=== PATIENT | female | born 1995 | race Caucasian/White ===

== ENCOUNTER 2018-10-19 19:43 | Emergency (ER) | payer BC, MEDICAID ==
[2018-10-19] MEDS ORDERED: FAMOTIDINE INJ/PF 20 MG/2 ML SDV IV ONE (20:35)
[2018-10-19] MEDS ORDERED: NORMAL SALINE 1000 ML 1,000 ML IV ONE (20:35)
[2018-10-19] MEDS ORDERED: ONDANSETRON HCL INJ/PF 4 MG/2 ML SDV IV ONE (20:35)
--- NOTE | 2018-10-19 20:52 | ER Document Report ---
ED Medical Screen (RME) - General Chief Complaint: Vomiting/Diarrhea Stated Complaint: VOMITING,DIARRHEA Time Seen by Provider: 10/19/18 20:20 Notes: She is a 23-year-old female who presents to the emergency department with a chief complaint of nausea, vomiting, and diarrhea. Patient states that over the past 4 days she has had vomiting every time she attempts to eat. Patient states she has had about 1-2 episodes of diarrhea per day. Patient denies blood in her emesis or stool. Patient also complaint of generalized upper abdominal pain and lower back pain. Patient does deny urinary symptoms. Patient states she has been able to tolerate liquids. TRAVEL OUTSIDE OF THE [place] IN LAST 30 DAYS: No - Related Data Allergies/Adverse Reactions: No Known Allergies Allergy (Verified 10/13/13 18:07) Past Medical History - Social History Frequency of alcohol use: Occasional Drug Abuse: None Pulmonary Medical History: Denies: Hx Tuberculosis Renal/ Medical History: Denies: Hx Peritoneal Dialysis Past Surgical History: Reports: Hx Oral Surgery - Immunizations Hx Diphtheria, Pertussis, Tetanus Vaccination: Yes - 02/14/13 Physical Exam - Vital signs Vitals: Temp Pulse Resp BP Pulse Ox 98.7 F 63 20 125/83 98 10/19/18 20:07 10/19/18 20:07 10/19/18 20:07 10/19/18 20:07 10/19/18 20:07 - Abdominal Inspection: Normal Distension: No distension Bowel sounds: Hyperactive Tenderness: Tender Organomegaly: No organomegaly Course - Re-evaluation Re-evalutation: 10/19/18 20:52 Presents to triage in no acute distress. Patient is nontoxic-appearing. I have greeted and performed a rapid initial assessment of this patient. A comprehensive ED assessment and evaluation of the patient, analysis of test results and completion of the medical decision making process will be conducted by additional ED providers. - Vital Signs Vital signs: Temp Pulse Resp BP Pulse Ox 98.7 F 63 20 125/83 98 10/19/18 20:07 10/19/18 20:07 10/19/18 20:07 10/19/18 20:07 10/19/18 20:07
[2018-10-19 22:16] LABS: ABSOLUTE EOSINOPHILS # (AUTO) 0.2 10^3/uL (0.0-0.6); ABSOLUTE LYMPHOCYTES (AUTO) 3.2 10^3/uL (0.5-4.7); ABSOLUTE MONOCYTES (AUTO) 0.7 10^3/uL (0.1-1.4); ABSOLUTE NEUT (AUTO) 3.8 10^3/uL (1.7-8.2); BASOPHILS % (AUTO) 0.5 % (0-2); EOSINOPHILS % (AUTO) 2.5 % (0-6); HEMATOCRIT 40.2 % (36.0-47.0); HEMOGLOBIN 13.7 g/dL (12.0-15.5); LYMPHOCYTES % (AUTO) 40.2 % (13-45); MEAN CORPUSCULAR HEMOGLOBIN 29.2 pg (27.0-33.4); MEAN CORPUSCULAR VOLUME 86 fl (80-97); PLATELET COUNT 241 10^3/uL (150-450); RED BLOOD COUNT 4.68 10^6/uL (3.72-5.28); RED CELL DISTRIBUTION WIDTH 13.3 % (11.5-14.0); SEGMENTED NEUTROPHILS % (AUTO) 47.8 % (42-78); TOTAL CELLS COUNTED % (AUTO) 100 %
[2018-10-19 22:26] LABS: APPEARANCE,URINE CLOUDY; BILIRUBIN,URINE NEGATIVE (NEGATIVE); COLOR,URINE YELLOW; GLUCOSE, URINE NEGATIVE (NEGATIVE); KETONES,URINE NEGATIVE (NEGATIVE); LEUKOCYTE ESTERASE,URINE MODERATE (NEGATIVE); NITRITE,URINE NEGATIVE (NEGATIVE); PROTEIN,URINE NEGATIVE (NEGATIVE); URINE SPECIFIC GRAVITY 1.013; UROBILINOGEN,URINE NEGATIVE mg/dL (<2.0)
[2018-10-19 22:32] LABS: ALANINE AMINOTRANSFERASE 44 U/L (9-52); ALBUMIN 4.4 g/dL (3.5-5.0); ALKALINE PHOSPHATASE 56 U/L (38-126); ANION GAP 11 (5-19); ASPARTATE AMINO TRANSFERASE 28 U/L (14-36); BILIRUBIN,DIRECT 0.3 mg/dL (0.0-0.4); BILIRUBIN,TOTAL 0.7 mg/dL (0.2-1.3); BLOOD UREA NITROGEN 9 mg/dL (7-20); CALCIUM 9.5 mg/dL (8.4-10.2); CARBON DIOXIDE 22 mmol/L (22-30); CHLORIDE 106 mmol/L (98-107); GLUCOSE 84 mg/dL (75-110); LIPASE 78.2 U/L (23-300); SODIUM 138.7 mmol/L (137-145); TOTAL PROTEIN 7.3 g/dL (6.3-8.2)
[2018-10-20] MEDS ORDERED: CEFTRIAXONE 1 GM/D5W RTU 1 GM/50 ML RTUPB IV ONE (02:15)
--- NOTE | 2018-10-20 02:37 | ER Document Report ---
ED GI/ - General Chief Complaint: Vomiting/Diarrhea Stated Complaint: VOMITING,DIARRHEA Time Seen by Provider: 10/19/18 20:20 Primary Care Provider: CALISTA VELA MD [Primary Care Provider] - Follow up as needed Information source: Patient TRAVEL OUTSIDE OF THE [place] IN LAST 30 DAYS: No - HPI Patient complains to provider of: Diarrhea, Vomiting Onset: Other - For the past 4 days. Timing/Duration: Sudden Quality of pain: Cramping Severity at maximum: Mild Severity in ED: Mild Pain Level: 1 Location: Epigastric Vaginal bleeding (Compared to normal period): None Associated symptoms: Nausea, Vomiting Exacerbated by: Denies Relieved by: Denies Similar symptoms previously: No Recently seen / treated by doctor: No - Related Data Allergies/Adverse Reactions: No Known Allergies Allergy (Verified 10/13/13 18:07) Past Medical History - Social History Smoking Status: Never Smoker Frequency of alcohol use: Occasional Drug Abuse: None Family History: None Patient has suicidal ideation: No Patient has homicidal ideation: No Pulmonary Medical History: Denies: Hx Tuberculosis Renal/ Medical History: Denies: Hx Peritoneal Dialysis Past Surgical History: Reports: Hx Oral Surgery - Immunizations Hx Diphtheria, Pertussis, Tetanus Vaccination: Yes - 02/14/13 Review of Systems - Review of Systems Constitutional: No symptoms reported EENT: No symptoms reported Cardiovascular: No symptoms reported Respiratory: No symptoms reported Gastrointestinal: Diarrhea, Nausea, Vomiting Genitourinary: No symptoms reported Female Genitourinary: No symptoms reported Musculoskeletal: No symptoms reported Skin: No symptoms reported Hematologic/Lymphatic: No symptoms reported Neurological/Psychological: No symptoms reported -: Yes All other systems reviewed and negative Physical Exam - Vital signs Vitals: Temp Pulse Resp BP Pulse Ox 98.7 F 63 20 125/83 98 10/19/18 20:07 10/19/18 20:07 10/19/18 20:07 10/19/18 20:07 10/19/18 20:07 Interpretation: Normal - General General appearance: Appears well, Alert - HEENT Head: Normocephalic, Atraumatic Eyes: Normal Pupils: PERRL - Respiratory Respiratory status: No respiratory distress Chest status: Nontender Breath sounds: Normal Chest palpation: Normal - Cardiovascular Rhythm: Regular Heart sounds: Normal auscultation Murmur: No - Abdominal Inspection: Normal Distension: No distension Bowel sounds: Normal Tenderness: Nontender Organomegaly: No organomegaly - Back Back: Normal, Nontender - Extremities General upper extremity: Normal inspection, Nontender, Normal color, Normal ROM, Normal temperature General lower extremity: Normal inspection, Nontender, Normal color, Normal ROM, Normal temperature, Normal weight bearing. No: Jerrell's sign - Neurological Neuro grossly intact: Yes Cognition: Normal Orientation: AAOx4 [place] Coma Scale Eye Opening: Spontaneous Cristian Coma Scale Verbal: Oriented Cristian Coma Scale Motor: Obeys Commands [place] Coma Scale Total: 15 Speech: Normal Motor strength normal: LUE, RUE, LLE, RLE Sensory: Normal - Psychological Associated symptoms: Normal affect, Normal mood - Skin Skin Temperature: Warm Skin Moisture: Dry Skin Color: Normal Course - Vital Signs Vital signs: Temp Pulse Resp BP Pulse Ox 98.4 F 66 20 102/64 97 10/20/18 02:47 10/20/18 02:47 10/20/18 02:47 10/20/18 02:47 10/20/18 02:47 - Laboratory Result Diagrams: 10/19/18 22:00 10/19/18 22:00 Laboratory results interpreted by me: 10/19/18 22:00 Urine Blood SMALL H Ur Leukocyte Esterase MODERATE H Discharge - Discharge Clinical Impression: UTI (urinary tract infection) Qualifiers: Urinary tract infection type: acute cystitis Hematuria presence: without hematuria Qualified Code(s): N30.00 - Acute cystitis without hematuria Condition: Stable Disposition: HOME, SELF-CARE Instructions: Urinary Tract Infection ([facility]), Vomiting ([facility]) Additional Instructions: Follow-up with your primary doctor in 2 to 3 days. Return to the emergency room if her condition worsens. Prescriptions: RX: Cephalexin Monohydrate [Keflex 500 mg Capsule] 500 mg PO Q6H 5 Days capsule Ondansetron [Zofran Odt 4 mg Tablet] 1 tab PO Q6H PRN #15 tab.rapdis PRN Reason: For Nausea/Vomiting Referrals: CALISTA VELA MD [Primary Care Provider] - Follow up as needed
[2018-10-20 02:50] VITALS: BP 102/64
== END 2018-10-20 02:50 | disposition home or self-care (01) ==
LOC: ER 19:43
DX: N30.00 Acute cystitis without hematuria (principal); R11.2 Nausea with vomiting, unspecified; R19.7 Diarrhea, unspecified; R10.13 Epigastric pain
CPT/HCPCS: 99284; 96361; 96374; 96375; 36415; 83690; 85025; 81025; 80053; 81001; J2405; J7030; S0028; J0696

== ENCOUNTER → 2019-11-13 | Outpatient (CLI) | payer BC ==
--- NOTE | 2019-11-13 12:18 | RADIOLOGY REPORT (SQ) ---
EXAM DESCRIPTION: VENOUS UNILATERAL LOWER IMAGES COMPLETED DATE/TIME: 11/13/2019 12:10 pm REASON FOR STUDY: LLE PAIN GRAVID 31 WKS M79.662 PAIN IN LEFT LOWER LEG COMPARISON: None. TECHNIQUE: Dynamic and static morrison scale and color images acquired of the left leg venous system. Se lected spectral images acquired with additional compression and augmentation maneuvers. The contralat eral common femoral vein and saphenofemoral junction were also imaged. Images stored on PACS. LIMITATIONS: None. FINDINGS: COMMON FEMORAL: Normal phasicity, compression and augmentation. No visualized echogenic ma terial on morrison scale. No defects on color images. FEMORAL: Normal compression and augmentation. No visualized echogenic material on morrison scale. No defe cts on color images. POPLITEAL: Normal compression, augmentation. No visualized echogenic material on morrison scale. No defec ts on color images. CALF VESSELS: Normal compression, augmentation. No visualized echogenic material on morrison scale. No de fects on color images. GSV and SSV: Normal compression, augmentation. No visualized echogenic material on morrison scale. No def ects on color images. ANY DEEP VENOUS INSUFFICIENCY: Not evaluated. ANY EVIDENCE OF POPLITEAL CYST: No. OTHER: No other significant finding. CONTRALATERAL COMMON FEMORAL VEIN AND SAPHENOFEMORAL JUNCTION: Normal phasicity, compression and augmentation. No visualized echogenic material on morrison scale. No de fects on color images. IMPRESSION: NO EVIDENCE DVT OR SVT IN THE LEFT LEG. TECHNICAL DOCUMENTATION: JOB ID: [id number] 2010 [employer]- All Rights Reserved Reading location - IP/workstation name: [email or web address]
== END ==
LOC: RAD 11:11
PROVIDERS: ATTEND Advanced Practice Midwife
DX: M79.662 Pain in left lower leg (principal)
CPT/HCPCS: 93971

== ENCOUNTER 2019-11-26 18:55 | Outpatient (CLI) | payer BC ==
[2019-11-26 19:35] LABS: APPEARANCE,URINE SLIGHTLY-CLOUDY; BILIRUBIN,URINE NEGATIVE (NEGATIVE); COLOR,URINE STRAW; GLUCOSE, URINE NEGATIVE (NEGATIVE); KETONES,URINE NEGATIVE (NEGATIVE); LEUKOCYTE ESTERASE,URINE MODERATE (NEGATIVE); NITRITE,URINE NEGATIVE (NEGATIVE); PROTEIN,URINE NEGATIVE (NEGATIVE); URINE SPECIFIC GRAVITY 1.002; UROBILINOGEN,URINE NEGATIVE mg/dL (<2.0)
[2019-11-26 19:48] LABS: URINE AMPHETAMINES SCREEN NEGATIVE; URINE BARBITURATES SCREEN NEGATIVE; URINE BENZODIAZEPINES SCREEN NEGATIVE; URINE COCAINE SCREEN NEGATIVE; URINE MARIJUANA (THC) SCREEN NEGATIVE; URINE METHADONE SCREEN NEGATIVE; URINE PHENCYCLIDINE SCREEN NEGATIVE
[2019-11-26] MEDS ORDERED: HYDROXYZINE PAMOATE 50 MG CAPSULE ONE (21:27)
--- NOTE | 2019-11-26 21:37 | Non Stress Test Report ---
Non Stress Test Datetime Report Generated by CPN: 11/26/2019 21:37 DEMOGRAPHIC EGA NST: 33.1 INDICATION Indication for Study (NST) Other: lc MONITORING Monitor Explained: Monitor Explained; Test Explained; Patient Verbalized Understanding Time on Monitor: 11/26/2019 19:23 Time off Monitor: 11/26/2019 21:25 NST Duration: 122 NST INTERVENTIONS NST Interventions: PO Hydration; Reposition Patient Physician Notified NST: Dr Morse BABY A: [id number] BABY A Movement : Present Contraction Frequency : rare FHR Baseline : 135 Accelerations : 15X15 Decelerations : None Variability : Moderate 6-25bpm NST Review: Meets Criteria for Reactive NST NST Review and Verified By : Omero Reid RN NSShanika Results: Reactive NST REPORT Report Trigger: Send Report
== END 2019-11-26 21:51 | disposition home or self-care (01) ==
LOC: LC 18:55
PROVIDERS: ATTEND Obstetrics & Gynecology
DX: Z34.93 Encounter for supervision of normal pregnancy, unspecified, third trimester (principal)
CPT/HCPCS: 59025; 80307; 81001

== ENCOUNTER 2019-12-23 21:10 | Outpatient (CLI) | payer BC ==
[2019-12-23 21:31] LABS: APPEARANCE,URINE CLEAR; BILIRUBIN,URINE NEGATIVE (NEGATIVE); COLOR,URINE STRAW; GLUCOSE, URINE NEGATIVE (NEGATIVE); KETONES,URINE NEGATIVE (NEGATIVE); LEUKOCYTE ESTERASE,URINE TRACE (NEGATIVE); NITRITE,URINE NEGATIVE (NEGATIVE); PROTEIN,URINE NEGATIVE (NEGATIVE); URINE SPECIFIC GRAVITY 1.003; UROBILINOGEN,URINE NEGATIVE mg/dL (<2.0)
[2019-12-23 21:47] LABS: URINE AMPHETAMINES SCREEN NEGATIVE; URINE BARBITURATES SCREEN NEGATIVE; URINE BENZODIAZEPINES SCREEN NEGATIVE; URINE COCAINE SCREEN NEGATIVE; URINE MARIJUANA (THC) SCREEN NEGATIVE; URINE METHADONE SCREEN NEGATIVE; URINE PHENCYCLIDINE SCREEN NEGATIVE
== END 2019-12-23 22:42 | disposition home or self-care (01) ==
LOC: LC 21:10
PROVIDERS: ATTEND Obstetrics & Gynecology
DX: O47.03 False labor before 37 completed weeks of gestation, third trimester (principal); Z3A.36 36 weeks gestation of pregnancy
CPT/HCPCS: 59025; 80307; 81005

== ENCOUNTER → 2019-12-29 | Outpatient (CLI) | payer BC ==
--- NOTE | 2019-12-29 10:28 | ER RDC ASSESSMENT REPORT ---
Intake - In the Last 14 days Have you traveled outside [place]?: No Have you been in close contact with someone CONFIRMED: No Worked in Healthcare?: Yes - Symptoms Subjective Fever([place] feverish): No Chills: No Muscule Aches: No Runny Nose: No Sore Throat: No Cough (New or worsening chronic cough): No Shortness of breath: No Nausea or Vomiting: No Headache: No Abdominal Pain: No Diarrhea(3 or more loose stools in last 24 hours): No - Do you have any of the following Chronic lung disease: Asthma or emphysema or COPD: No Cystic Fibrosis: No Diabetes: No High Blood Pressure: No Cardiovascular Disease: No Chronic Kidney Disease: No Chronic Liver Disease: No Chronic blood disorder like Sickle Cell Disease: No Weak immune system due to disease or medication: No Neurologic condition that limits movement: No Developmental delay - Moderate to Severe: No Recent (within past 2 weeks) or current : Yes --If current: Trimester: 3rd Morbid Obesity (>100 pounds over ideal weight): No - Objective Temperature: 98.3 F Pulse Rate: 89 Respiratory Rate: 18 Blood Pressure: 107/60 O2 Sat by Pulse Oximetry: 97 Objective: Given above, testing performed: covid Disposition: Home; Selfcare General - General Stated Complaint: asymptomatic, pre-physician appt covid screen Time Seen by Provider: 12/29/19 10:10 Mode of Arrival: Ambulatory Information source: Patient - HPI Notes: 24-year-old female presents to [facility] clinic for COVID-19 testing. 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 Patient states she is seeking testing as it is required by her [facility] office prior to her appointment next week she is currently 37 weeks . Patient states she did have 1 day symptoms of fever with T-max of 99.9, muscle aches, cough, shortness of breath with exertion, and diarrhea. However, these symptoms stopped approximately 24 hours ago. She is currently asymptomatic and denies any fever chills myalgia rhinorrhea sore throat cough shortness of breath nausea vomiting headache abdominal pain or diarrhea. - Related Data Allergies/Adverse Reactions: No Known Allergies Allergy (Verified 12/23/19 21:19) Past Medical History - General Information source: Patient - Social History Smoking Status: Never Smoker Family History: None - Past Medical History Cardiac Medical History: Reports: None Pulmonary Medical History: Reports: None Denies: Hx Tuberculosis EENT Medical History: Reports: None Neurological Medical History: Reports: None Endocrine Medical History: Reports: None Renal/ Medical History: Reports: None. Denies: Hx Peritoneal Dialysis Malignancy Medical History: Reports: None GI Medical History: Reports: None Musculoskeletal Medical History: Reports None Skin Medical History: Reports None Psychiatric Medical History: Reports: None Traumatic Medical History: Reports: None Infectious Medical History: Reports: None Past Surgical History: Reports: Hx Oral Surgery Physical Exam - General General appearance: Appears well, Alert In distress: None Notes: PHYSICAL EXAMINATION: GENERAL: Well-appearing and in no acute distress. HEAD: Atraumatic, normocephalic. EYES: sclera anicteric, conjunctiva are normal. ENT: nares patent. Moist mucous membranes. NECK: Normal range of motion, supple without lymphadenopathy. LUNGS: No increased work of breathing. Lung sounds CTAB and equal. No wheezes rales or rhonchi. HEART: Regular rate and rhythm without murmurs. ABDOMEN: Gravid abdomen, nontender, normal bowel sounds, no guarding. EXTREMITIES: Normal range of motion, no pitting edema. No cyanosis. NEUROLOGICAL: A&O x 3. Normal speech. PSYCH: Normal mood, normal affect. SKIN: Warm, Dry, normal turgor, no rashes or lesions noted Patient Education/Counseling Counseling/Education: Patient presents for COVID 19 testing prior to physician appointment next week. Patient is asymptomatic at this time. Patient does not have emergency worrying symptoms such as difficulty breathing, shortness of breath, chest pain, pressure, confusion or cyanosis. Patient appears suitable for discharge as vital signs are stable and patient is nontoxic in appearance. Good return precautions have been discussed with patient, patient verbalized understanding and is agreeable with discharge plan of care at this time. Guidance for worsening S/SX: As a person under investigation for Covid 19, the [facility], division of public health advises you to adhere to the following guidance until your test results are reported to you. If your test result is positive, you will receive additional information from your provider and your local health department at that time. Remain at home until you are cleared by the health provider or public health authorities. Keep a log of visitors to your home, notify any visitors to your home of your isolation status. If you plan to move to a new address or leave the county, notify the local health department in your County. Call your doctor or seek care if you have an urgent medical need. Before seeking medical care, call ahead to get instructions from the provider before arriving at the medical office clinic or hospital. Notify them that you are being tested for the virus that causes Covid 19 so that arrangements can be made, as necessary, to prevent transmission to others in the healthcare setting. Next, notify the local health department in your county. If a medical emergency arises and you need to call 911, inform the first responders that you are being tested for the virus that causes Covid 19. Next, notify the local health department in your county. RDC Discharge - Discharge Clinical Impression: Encounter for screening laboratory testing for COVID-19 virus in asymptomatic patient Condition: Good Disposition: Home; Selfcare
[2019-12-29 10:29] VITALS: BP 107/60
== END ==
LOC: RDC 09:57
PROVIDERS: ATTEND Registered Nurse
DX: Z03.818 Encounter for observation for suspected exposure to other biological agents ruled out (principal)
CPT/HCPCS: 99201; 99211; U0003; C9803; 87635

== ENCOUNTER 2020-01-17 17:00 | Inpatient (IN) | payer BC ==
--- NOTE | 2020-01-17 17:14 | Non Stress Test Report ---
Non Stress Test Datetime Report Generated by CPN: 01/17/2020 17:14 DEMOGRAPHIC EGA NST: 37.0 INDICATION Indication for Study (NST) Other: labor check URINE RESULTS Urine Protein, NST: Negative Urine Ketones - NST: Negative Urine Glucose - NST: Negative Urine Blood - NST: Negative MONITORING Time on Monitor: 12/23/2019 21:21 Time off Monitor: 12/23/2019 22:34 NST Duration: 73 NST INTERVENTIONS NST Interventions: PO Hydration Physician Notified NST: Braden BABY A: [id number] BABY A Movement : Present Contraction Frequency : irregular FHR Baseline : 120 Accelerations : 15X15 Decelerations : None Variability : Moderate 6-25bpm NST Review: Meets Criteria for Reactive NST NST Review and Verified By : Micah New RN NST Results: Reactive NST REPORT Report Trigger: Send Report
[2020-01-17 17:28] LABS: APPEARANCE,URINE CLEAR; BILIRUBIN,URINE NEGATIVE (NEGATIVE); COLOR,URINE COLORLESS; GLUCOSE, URINE NEGATIVE (NEGATIVE); KETONES,URINE NEGATIVE (NEGATIVE); LEUKOCYTE ESTERASE,URINE NEGATIVE (NEGATIVE); NITRITE,URINE NEGATIVE (NEGATIVE); PROTEIN,URINE NEGATIVE (NEGATIVE); URINE SPECIFIC GRAVITY 1.003; UROBILINOGEN,URINE NEGATIVE mg/dL (<2.0)
--- NOTE | 2020-01-17 17:31 | Admission Physical ---
Datetime Report Generated by CPN: 01/17/2020 17:31 CURRENT ADMISSION Hx Assessment: The History has been Reviewed and is Current Chief Complaint: Uterine Contractions Indication for Induction: Not Applicable Admit Impression : Term, Intrauterine ; Active Labor; Ruptured Membranes Admit Plan: Admit to Unit; Initiate Labor Protocol ALLERGIES Medication Allergies: No Medication Allergies: No Known Allergies (01/17/2020) Latex: No Latex Allergies OBSTETRICAL HISTORY EDC: 01/13/2020 00:00 : 2 Para: 1 Term: 1 : 0 SAB: 0 IAB: 0 Ectopic: 0 Livin Cesareans: 0 VBACs: 0 Multiple Births: 0 Obstetrical History Comments: g1 - SEE RECORDS Alcohol: No Marijuana : No Cocaine: No Other Illicit Drugs: No Cigarettes: Never Smoker. [id number] PHYSICAL EXAM General: Normal Heart: Normal Lungs: Normal Abdomen: Normal Extremities: Normal DTRs: Normal Physical Exam Comments: pelvis proven to 7lbs 1oz Vital Signs: Reviewed; Within Normal Limits MEMBRANES Membranes: Ruptured FETUS A EGA: 40.4 Monitoring: External US FHR Category: Category I Presentation: Vertex Admit Comment: 24yo @ 40w4d into L_D with UC that started a couple of hours ago and suspected SROM. Pt is O pos, RI, GBS neg, with complicated by chlamydia in early with neg test of cure. Pt found to be 5cm on arrival, will admit, anticipate delivery. Desires natural childbirth, epidural prn. PLANS FOR LABOR AND DELIVERY Labor and Delivery: None Feeding Preference: Breast Circumcision: N/A INFORMED CONSENT Assignment: Yamila Morse MD Signature: with User ID: Rehana : with User ID: [email or web address]
[2020-01-17 17:47] LABS: URINE AMPHETAMINES SCREEN NEGATIVE; URINE BARBITURATES SCREEN NEGATIVE; URINE BENZODIAZEPINES SCREEN NEGATIVE; URINE COCAINE SCREEN NEGATIVE; URINE MARIJUANA (THC) SCREEN NEGATIVE; URINE METHADONE SCREEN NEGATIVE; URINE PHENCYCLIDINE SCREEN NEGATIVE
[2020-01-17 17:52] LABS: ABSOLUTE BASOPHILS # (AUTO) 0.1 10^3/uL (0.0-0.2); ABSOLUTE EOSINOPHILS # (AUTO) 0.3 10^3/uL (0.0-0.6); ABSOLUTE LYMPHOCYTES (AUTO) 2.3 10^3/uL (0.5-4.7); ABSOLUTE MONOCYTES (AUTO) 1.2 10^3/uL (0.1-1.4); ABSOLUTE NEUT (AUTO) 8.9 10^3/uL (1.7-8.2); BASOPHILS % (AUTO) 0.6 % (0-2); EOSINOPHILS % (AUTO) 2.5 % (0-6); HEMOGLOBIN 12.3 g/dL (12.0-15.5); LYMPHOCYTES % (AUTO) 17.9 % (13-45); MEAN CORPUSCULAR HEMOGLOBIN 27.7 pg (27.0-33.4); MEAN CORPUSCULAR HGB CONC 34.2 g/dL (32.0-36.0); MEAN CORPUSCULAR VOLUME 81 fl (80-97); MONOCYTES % (AUTO) 9.2 % (3-13); PLATELET COUNT 267 10^3/uL (150-450); RED BLOOD COUNT 4.44 10^6/uL (3.72-5.28); RED CELL DISTRIBUTION WIDTH 15.5 % (11.5-14.0); SEGMENTED NEUTROPHILS % (AUTO) 69.8 % (42-78); TOTAL CELLS COUNTED % (AUTO) 100 %; WHITE BLOOD COUNT 12.7 10^3/uL (4.0-10.5)
[2020-01-17] MEDS ORDERED: LIDOCAINE 1% INJ-PF (10 MG/ML) 30 ML SDV ONE (17:56)
[2020-01-17] MEDS ORDERED: OXYTOCIN 10 UNIT/ML VIAL ONE (17:56)
[2020-01-17] MEDS ORDERED: OXYTOCIN/0.9 % SODIUM CHLORIDE 30 UNIT/500 ML RTUINJ ONE (17:56)
[2020-01-17] MEDS ORDERED: MISOPROSTOL 0.2 MG TABLET ONE (17:56)
[2020-01-17] MEDS ORDERED: EPHEDRINE SULFATE INJ 50 MG/1 ML AMPULE ONE (18:48)
[2020-01-17] MEDS ORDERED: ROPIVACAINE HCL 0.2% INJ/PF (2 MG/ML) 20 ML SDV ONE (18:48)
[2020-01-17] MEDS ORDERED: FENTANYL/BUPIVACAINE/NS/PF 300 MCG/150 ML RTUINJ EPI ONE (18:48)
[2020-01-17] MEDS ORDERED: ACETAMINOPHEN 650 MG SUPP.RECT PR PRN (21:49)
[2020-01-17] MEDS ORDERED: DIPH/PERTUSS(ACELL)/TETANUS VAC/PF 0.5 ML SYR (>=10YO) IM PRN (21:49)
[2020-01-17] MEDS ORDERED: ACETAMINOPHEN 325 MG TABLET PO PRN (21:49)
[2020-01-17] MEDS ORDERED: GLYCERIN/WITCH HAZEL LEAF 1 EACH MED..WIPE TP PRN (21:49)
[2020-01-17] MEDS ORDERED: DIBUCAINE 1% OINTMENT 28 GM TP PRN (21:49)
[2020-01-17] MEDS ORDERED: MAGNESIUM HYDROXIDE SUSP 30 ML UDCUP PO PRN (21:49)
[2020-01-17] MEDS ORDERED: PROMETHAZINE HCL INJ 25 MG/1 ML VIAL IV PRN (21:49)
[2020-01-17] MEDS ORDERED: MISOPROSTOL 0.2 MG TABLET PR PRN (21:49)
[2020-01-17] MEDS ORDERED: ZOLPIDEM TARTRATE 5 MG TABLET PO PRN (21:49)
[2020-01-17] MEDS ORDERED: PROMETHAZINE HCL 25 MG SUPP.RECT PR PRN (21:49)
[2020-01-17] MEDS ORDERED: BENZOCAINE/MENTHOL AEROSOL SPRAY 56 ML TOP PRN (21:49)
[2020-01-17] MEDS ORDERED: ACETAMINOPHEN WITH CODEINE #3 TABLET PO PRN ×2 (21:49)
[2020-01-17] MEDS ORDERED: NA PHOS,M-B/NA PHOS,DI-BA (ADULT) 133 ML ENEMA PR PRN (21:49)
[2020-01-17] MEDS ORDERED: MEASLES,MUMPS&RUBELLA VACC/PF 0.5 ML VIAL SUBCUT PRN (21:49)
[2020-01-17] MEDS ORDERED: DIPHENHYDRAMINE HCL 25 MG CAPSULE PO PRN (21:49)
[2020-01-17] MEDS ORDERED: PROMETHAZINE HCL 25 MG TABLET PO PRN (21:49)
[2020-01-17] MEDS ORDERED: PSEUDOEPHEDRINE HCL 30 MG TABLET PO PRN (21:49)
[2020-01-17] MEDS ORDERED: OXYTOCIN/0.9 % SODIUM CHLORIDE 30 UNIT/500 ML RTUINJ IV PRN (21:49)
--- NOTE | 2020-01-17 22:13 | Warning Signs in Babies ---
VOD Warning Signs Datetime Report Generated by [facility]: 01/17/2020 22:13 VOD#[id number] -Warning Signs in Babies: Needs to be viewed. (11/26/2019 19:26:Stormy Osman RN)
--- NOTE | 2020-01-17 22:13 | Delivery Summary ---
Del Sum A-C Datetime Report Generated by CPN: 01/17/2020 22:13 DELIVERY PERSONNEL DELIVERY PERSONNEL: [id number] Delivery Doctor:: Yamila Morse MD [employer] TECHNICAL:: Mirian Weldon CRNA Labor and Delivery Nurse:: Stormy Osman RN Labor and Delivery Nurse:: Yoli Carvalho RN Package Delivery Driver/PLUMBER HELPER: Kelli Frye, ST MATERNAL INFORMATION Delivery Anesthesia: Epidural Medications After Delivery: Pitocin 30 Units in 500ml NS/D5W Estimated Blood Loss (ml): 200 Maternal Complications: None Provider Comments: Called to patients room as she was complete and plus two station with urge to push. SHe pushed through a few contractions and delivered a viable female infant. Baby vigorous at deliver so cord clamping was delayed for 30 seconds. Infant placed skin to skin with mother. Both stable. Fundus firm. Repair of first degree midline laceration above the urethra and clitorus where the labia minora met in the midline. Good hemostasis obtained after stitiches placed. LABOR SUMMARY EDC: 01/13/2020 00:00 No. Babies in Womb: 1 Attempted: No Labor Anesthesia: Epidural LABOR INFORMATION Reason for Induction: Not Applicable Onset of Labor: 01/17/2020 14:00 Complete Dilatation: 01/17/2020 20:19 Oxytocin: N/A Group B Beta Strep: negative Antibiotics # of Doses: n/a Name of Antibiotic Given: n/a Steroids Given: None Reason Steroids Not Administered: Not Applicable MEMBRANES Membranes Rupture Method: Spontaneous Rupture of Membranes: 01/17/2020 18:17 Length of Rupture (hr): 2.40 Amniotic Fluid Color: Clear Amniotic Fluid Amount: Moderate Amniotic Fluid Odor: Normal STAGES OF LABOR Stage 1 hr: 6 Stage 1 min: 19 Stage 2 hr: 0 Stage 2 min: 22 Stage 3 hr: 0 Stage 3 min: 3 Total Time in Labor hr: 6 Total Time in Labor min: 44 VAGINAL DELIVERY Episiotomy: None Laceration #1: Periurethral Laceration Extension #1: First Degree Laceration Repair: Yes Laceration Repair Note: 3-0 chromic on an SH needle in a running closure Sponge Count Correct: Yes Sharps Count Correct: Yes CSECTION DELIVERY Primary Indication: N/A BABY A INFORMATION Delivery Date/Time: 01/17/2020 20:41 Method of Delivery: Vaginal Nurse Controlled Delivery: No Born in Route : No : N/A Forceps: N/A Vacuum Extraction: N/A Shoulder Dystocia : No PRESENTATION/POSITION BABY A Presentation: Cephalic Cephalic Presentation: Vertex Vertex Position: Left Occipital Anterior Breech Presentation: N/A PLACENTA INFORMATION BABY A Placenta Delivery Time : 01/17/2020 20:44 Placenta Method of Delivery: Spontaneous Placenta Status: Delivered SCORES BABY A Heart Rate 1 min: >100 bpm Resp Effort 1 min: Good Cry Reflex Irritability 1 min: Cough or Sneeze or Pulls Away Muscle Tone 1 min: Active Motion Color 1 min: Body [place], Extremities Blue SCORE 1 MIN: 9 Heart Rate 5 min: >100 bpm Resp Effort 5 min: Good Cry Reflex Irritability 5 min: Cough or Sneeze or Pulls Away Muscle Tone 5 min: Active Motion Color 5 min: Body [place], Extremities Blue SCORE 5 MIN: 9 INFANT INFORMATION BABY A Gestational Age at Delivery: 40.4 Gestational Status: Full Term- 39- 40.6 Weeks Infant Outcome : Liveborn Infant Condition : Stable Infant Sex: Female IDENTIFICATION BABY A Verification Date/Time: 01/17/2020 21:16 ID Band Number: [id number] Mother's Name Verified: Yes RN Verifying Infant: C. Mukulilin, RN. D Bellevance, RN WEIGHT/LENGTH BABY A Birthweight (gm): 3610 Infant Weight (lb): 7 Infant Weight (oz): 15 Infant Length (in): 21.00 Length (cm): 53.34 CORD INFORMATION BABY A No. Cord Vessels: 3 Nuchal Cord : N/A Cord Blood Taken: Yes-For Eval (Mom's Blood Type - or O+) Infant Suction: Mouth ASSESSMENT BABY A Complications: None Physical Findings at Delivery: Within Normal Limits Infant Respirations: Appears Normal Skin to Skin: Yes Signal Worker Helper/ALS Called : No Infant Care By: R. Maia, RN Transferred To: Remains with Mother BABY B INFORMATION : N/A SIGNATURES Signature: with User ID: Nick : with User ID: [email or web address]
--- NOTE | 2020-01-17 22:13 | Birth Certificate Data ---
Cert Data Datetime Report Generated by CPN: 01/17/2020 22:13 CERTIFICATE DATA 47a. Care: Yes (11/26/2019 19:26:SETH Hunter) 47b. Date of First Visit: 07/04/2019 00:00 (11/26/2019 19:26:Jaquelin Porras RN) 47c. Date of Last Visit: 11/13/2019 00:00 (11/26/2019 19:26:SETH Hunter) 48a. Number of Prev Live Births: 1 (11/26/2019 19:26:SETH Hunter) 48b. Now Livin (11/26/2019 19:26:SETH Hunter) 48c. Live Births Now : 0 (11/26/2019 19:26:QS system process) 48e. Losses: 0 (11/26/2019 19:26:SETH Hunter) RISK FACTORS IN THIS 49a. Diabetes: No (11/26/2019 19:26:Jaquelin Porras RN) 49b. Hypertension: No (11/26/2019 19:26:Jaquelin Porras RN) 49c. Previous Births: 0 (11/26/2019 19:26:SETH Hunter) 49d. Stillborns: No (11/26/2019 19:26:Jaquelin Porras RN) 49d. IUGR: No (11/26/2019 19:26:Jaquelin Porras RN) 49e. Infertility Treatment: No (11/26/2019 19:26:Jaquelin Porras RN) 49f. Previous Cesareans: 0 (11/26/2019 19:26:SETH Hunter) Mother's Height 50b. Height Inches: 60 (11/26/2019 19:12:QS system process) Mother's Weight 51a. Pre- Weight (lbs): 130 (11/26/2019 19:26:Glenda Gutierrez RN) 51b. Weight at Delivery (lbs): 176 (01/17/2020 18:15:QS system process) Infections Present/Treated 53a. Gonorrhea: No (11/26/2019 19:26:Jaquelin Porras RN) Results this Hospital Visit : Negative (11/26/2019 19:26:Glenda Gutierrez RN) 53b. Syphilis: No (11/26/2019 19:26:Jaquelin Porras RN) 53c. Chlamydia: Yes (11/26/2019 19:26:Jaquelin Porras RN) Results this Hospital Visit: Negative (11/26/2019 19:26:Glenda Gutierrez RN) 53d. Hepatitis B: No (11/26/2019 19:26:Jaquelin Porras RN) Results this Hospital Visit: Negative (11/26/2019 19:26:Glenda Gutierrez RN) 53e. Hepatitis C: Negative (11/26/2019 19:26:Alicia Sousa RN) 53h. Mother Tested for HBsAG: Yes (11/26/2019 19:26:Alicia Sousa RN) 53i. Date Tested: 07/04/2019 00:00 (11/26/2019 19::Alicia Sousa RN) 53j. Test Result: Negative (11/26/2019 19:26:Glenda Gutierrez RN) Obstetric Procedures 54a, b, c. Obstetric Procedures: Ultrasound; NST (11/26/2019 19:26:Jaquelin Porras RN) Cigarette Smoking Cigarette Smoking: Never Smoker. [id number] (11/26/2019 19:26:Glenda Gutierrez RN) 55a. 3 Months Before Preg - Ci (11/26/2019 19:26:Stormy Osman RN) 55b. 1st Trimester of Preg- Ci (11/26/2019 19:26:Stormy Osman RN) 55c. 2nd Trimester of Preg- Ci (11/26/2019 19:26:Stormy Osman RN) 55d. 3rd Trimester of Preg- Ci (11/26/2019::Stormy Osman RN) Onset of Labor 56a. PROM >12 Hrs: 2.40 (11/26/2019::QS system process) 56b. Precipitous Labor <3 Hrs: 6 (11/26/2019:26:QS system process) 56c. Prolonged Labor > 20 Hrs: 6 (11/26/2019::QS system process) 57a. Induction of Labor: N/A (11/26/2019::Stormy Osman RN) 57c. Non-Vertex Presentation A: Vertex (11/26/2019::Stormy Osman RN) 57d. Steroids - Lung Mat: None (11/26/2019::Jaquelin Porras RN) 57d. Steroids - Lung Mat: Not Applicable (11/26/2019::Jaquelin Porras RN) 57f. Mat [place] or Temp >100.4: 98.4 (11/26/2019 19:26:Yoli Carvalho RN) 57g. Moderate/Heavy Meconium: Clear (01/17/2020 18:17:Jaquelin Porras RN) 57h. Intolerance of Labor: N/A (11/26/2019 19:26:Stormy Osman RN) 57i. Epidural/Spinal Anesthesia: Epidural (11/26/2019 19:26:Jaquelin Porras RN) Method of Delivery 58a. Forceps - Unsuccessful A: N/A (11/26/2019 19:26:Stormy Osman RN) 58b. Vacuum - Unsuccessful A: N/A (11/26/2019 19:26:Stormy Osman RN) 58c. Presentation at 58c. Presentation at - A : Vertex (11/26/2019 19:26:Stormy Osman RN) 58c. Presentation at - A : N/A (11/26/2019 19:26:Stormy Osman RN) 58c. Presentation at - A : Cephalic (01/17/2020 18:38:Jaquelin Porras RN) Final Route and Method of Del 58d. Baby A Route/Delivery: Vaginal (01/17/2020 20:41:Stormy Osman RN) 58e. Trial of Labor Attempted: No (11/26/2019 19:26:Jaquelin Porras RN) 58e. Trial of Labor Attempted A: N/A (11/26/2019 19:26:Jaquelin Porras RN) 58e. Trial of Labor Attempted B: N/A (11/26/2019 19:26:Jaquelin Porras RN) Maternal Morbidity 59b. 3rd or 4th Degree Lacs: Periurethral (11/26/2019 19:26:Stormy Osman RN) Birthweight Baby A: 3610 (11/26/2019 19:26:Stormy Osman RN) 60a. Pounds : 7 (11/26/2019 19:26:QS system process) 60b. Ounces: 15 (11/26/2019 19:26:QS system process) 61. GA at Delivery Baby A: 40.4 (11/26/2019 19:26:Yoli Carvalho RN) : Full Term- 39- 40.6 Weeks (11/26/2019 19:26:QS system process) 62a. 5 Minute Baby A: 9 (11/26/2019 19:26:QS system process)
[2020-01-17] MEDS ORDERED: IBUPROFEN 800 MG TABLET ONE (22:50)
[2020-01-17] MEDS: IBUPROFEN 800 MG TABLET PO SCH (23:15)
[2020-01-18] MEDS ORDERED: IBUPROFEN 800 MG TABLET ONE (06:26)
[2020-01-18] MEDS: FAMOTIDINE 20 MG TABLET PO SCH ×3 (06:28→23:26)
[2020-01-18] MEDS: IBUPROFEN 800 MG TABLET PO SCH ×3 (06:33→23:26)
[2020-01-18 06:51] LABS: HEMATOCRIT 31.4 % (36.0-47.0); HEMOGLOBIN 10.9 g/dL (12.0-15.5); MEAN CORPUSCULAR HEMOGLOBIN 28.1 pg (27.0-33.4); MEAN CORPUSCULAR HGB CONC 34.8 g/dL (32.0-36.0); MEAN CORPUSCULAR VOLUME 81 fl (80-97); PLATELET COUNT 240 10^3/uL (150-450); RED CELL DISTRIBUTION WIDTH 15.7 % (11.5-14.0); WHITE BLOOD COUNT 16.9 10^3/uL (4.0-10.5)
[2020-01-18] MEDS: DOCUSATE SODIUM 100 MG CAPSULE PO SCH ×2 (10:38→17:24)
[2020-01-18] MEDS: PRENATAL VITAMIN W DHA CAPSULE PO SCH (10:38)
[2020-01-18] MEDS: SENNOSIDES/DOCUSATE 8.6-50 MG 1 EACH TABLET PO SCH (10:38)
[2020-01-18] MEDS: FERROUS SULFATE 325 MG TABLET PO SCH ×2 (10:38→17:25)
--- NOTE | 2020-01-18 13:33 | PDOC PROGRESS REPORT ---
Subjective-OB Progress Note for:: 01/18/20 Subjective: reports bleeding slowing, pain controlled with current meds. denies needs Physical Exam (OB) Vital Signs: Intake & Output 01/17/20 01/18/20 01/19/20 06:59 06:59 06:59 Weight 79.8 kg - Maternal Morbidity 59. Maternal Morbidity (serious complications experinced by the mother associate d with labor and delivery: None of the above - Abdomen Fundal Description: Firm, Midline Fundal Height: u/u - u/2 - Abdominal Distension: No distension Tenderness: Nontender - Extremities Lower extremities: Jerrell's sign - neg Calf: Normal, Nontender Objective-Diagnostic Laboratory: 01/18/20 06:35 01/17/20 01/17/20 01/17/20 17:06 17:40 17:40 WBC 12.7 H RBC 4.44 Hgb 12.3 Hct 36.0 MCV 81 MCH 27.7 MCHC 34.2 RDW 15.5 H Plt Count 267 Seg Neutrophils % 69.8 Urine Color COLORLESS Urine Appearance CLEAR Urine pH 7.0 Ur Specific [place] 1.003 Urine Protein NEGATIVE Urine Glucose (UA) NEGATIVE Urine Ketones NEGATIVE Urine Blood NEGATIVE Urine Nitrite NEGATIVE Ur Leukocyte Esterase NEGATIVE Blood Type O POSITIVE Antibody Screen NEGATIVE 01/18/20 06:35 WBC 16.9 H RBC 3.90 Hgb 10.9 L Hct 31.4 L MCV 81 MCH 28.1 MCHC 34.8 RDW 15.7 H Plt Count 240 Seg Neutrophils % Urine Color Urine Appearance Urine pH Ur Specific [place] Urine Protein Urine Glucose (UA) Urine Ketones Urine Blood Urine Nitrite Ur Leukocyte Esterase Blood Type Antibody Screen Assessment and Plan(PN) - Time Spent with Patient Time with patient: Less than 15 minutes Medications reviewed and adjusted accordingly: Yes - Disposition Anticipated Discharge Disposition: Home, Self Care Anticipated Discharge Timeframe: within 24 hours
[2020-01-18] MEDS ORDERED: PROMETHAZINE HCL INJ 25 MG/1 ML VIAL IV PRN (15:30)
[2020-01-18] MEDS ORDERED: DIPH/PERTUSS(ACELL)/TETANUS VAC/PF 0.5 ML SYR (>=10YO) IM PRN (15:30)
[2020-01-18] MEDS ORDERED: MEASLES,MUMPS&RUBELLA VACC/PF 0.5 ML VIAL SUBCUT PRN (15:30)
[2020-01-19] MEDS: IBUPROFEN 800 MG TABLET PO SCH ×2 (05:58→13:53)
[2020-01-19] MEDS ORDERED: INFLUENZA QUAD (6MOS+) 2020-21 VAC 0.5 ML SYR IM ONE (08:00)
[2020-01-19 08:24] VITALS: BP 105/66
[2020-01-19] MEDS: FERROUS SULFATE 325 MG TABLET PO SCH (09:40)
[2020-01-19] MEDS: PRENATAL VITAMIN W DHA CAPSULE PO SCH (09:40)
[2020-01-19] MEDS: FAMOTIDINE 20 MG TABLET PO SCH (09:40)
[2020-01-19] MEDS: SENNOSIDES/DOCUSATE 8.6-50 MG 1 EACH TABLET PO SCH (09:40)
[2020-01-19] MEDS: DOCUSATE SODIUM 100 MG CAPSULE PO SCH (09:40)
--- NOTE | 2020-01-19 11:31 | PDOC DISCHARGE SUMMARY ---
Impression - Admit/DC Date/PCP Admission Date/Primary Care Provider: 01/17/20 17:25 CALISTA VELA MD Discharge Date: 01/19/20 - PP day #2, doing well , no complaints, O+ Rubella Immune, , - Discharge Diagnosis (1) Normal course Is this a current diagnosis for this admission?: Yes (2) Normal vaginal delivery Is this a current diagnosis for this admission?: Yes (3) Obstetrical laceration Is this a current diagnosis for this admission?: Yes - Additional Information Resuscitation Status: Full Code Discharge Diet: As Tolerated, Regular Referrals: CALISTA VELA MD [Primary Care Provider] - Prescriptions: Ibuprofen [Motrin 800 mg Tablet] 800 mg PO Q8 #60 tablet Home Medications: Pnv 102/Iron/Folate/Dha [Vitafol Fe Plus Softgel] 1 each PO DAILY 11/26/19 Ibuprofen [Motrin 800 mg Tablet] 800 mg PO Q8 #60 tablet 01/19/20 HPI Reason(s) for Admission: Onset of Labor Procedures: Ultrasound Intrapartum Procedure(s): Spontaneous Vaginal Delivery Complication(s): Laceration-Periurethral Laceration-Degree: 1st Hospital Course Hospital Course: routine 59. Maternal Morbidity (serious complications experinced by the mother associate d with labor and delivery: None of the above Results Laboratory Results: WBC 16.9 10^3/uL (4.0-10.5) H 01/18/20 06:35 RBC 3.90 10^6/uL (3.72-5.28) 01/18/20 06:35 Hgb 10.9 g/dL (12.0-15.5) L 01/18/20 06:35 Hct 31.4 % (36.0-47.0) L 01/18/20 06:35 MCV 81 fl (80-97) 01/18/20 06:35 MCH 28.1 pg (27.0-33.4) 01/18/20 06:35 MCHC 34.8 g/dL (32.0-36.0) 01/18/20 06:35 RDW 15.7 % (11.5-14.0) H 01/18/20 06:35 Plt Count 240 10^3/uL (150-450) 01/18/20 06:35 Lymph % (Auto) 17.9 % (13-45) 01/17/20 17:40 [place] % (Auto) 9.2 % (3-13) 01/17/20 17:40 Eos % (Auto) 2.5 % (0-6) 01/17/20 17:40 Baso % (Auto) 0.6 % (0-2) 01/17/20 17:40 Absolute Neuts (auto) 8.9 10^3/uL (1.7-8.2) H 01/17/20 17:40 Absolute Lymphs (auto) 2.3 10^3/uL (0.5-4.7) 01/17/20 17:40 Absolute Monos (auto) 1.2 10^3/uL (0.1-1.4) 01/17/20 17:40 Absolute Eos (auto) 0.3 10^3/uL (0.0-0.6) 01/17/20 17:40 Absolute Basos (auto) 0.1 10^3/uL (0.0-0.2) 01/17/20 17:40 Seg Neutrophils % 69.8 % (42-78) 01/17/20 17:40 Urine Color COLORLESS 01/17/20 17:06 Urine Appearance CLEAR 01/17/20 17:06 Urine pH 7.0 (5.0-9.0) 01/17/20 17:06 Ur Specific [place] 1.003 01/17/20 17:06 Urine Protein NEGATIVE mg/dL (NEGATIVE) 01/17/20 17:06 Urine Glucose (UA) NEGATIVE mg/dL (NEGATIVE) 01/17/20 17:06 Urine Ketones NEGATIVE mg/dL (NEGATIVE) 01/17/20 17:06 Urine Blood NEGATIVE (NEGATIVE) 01/17/20 17:06 Urine Nitrite NEGATIVE (NEGATIVE) 01/17/20 17:06 Urine Bilirubin NEGATIVE (NEGATIVE) 01/17/20 17:06 Urine Urobilinogen NEGATIVE mg/dL (<2.0) 01/17/20 17:06 Ur Leukocyte Esterase NEGATIVE (NEGATIVE) 01/17/20 17:06 Urine Ascorbic Acid NEGATIVE (NEGATIVE) 01/17/20 17:06 Membranes Rupture NEGATIVE (NEGATIVE) 01/17/20 17:10 Urine Opiates Screen NEGATIVE 01/17/20 17:06 Urine Methadone Screen NEGATIVE 01/17/20 17:06 Ur Barbiturates Screen NEGATIVE 01/17/20 17:06 Ur Phencyclidine Scrn NEGATIVE 01/17/20 17:06 Ur Amphetamines Screen NEGATIVE 01/17/20 17:06 U Benzodiazepines Scrn NEGATIVE 01/17/20 17:06 Urine Cocaine Screen NEGATIVE 01/17/20 17:06 U Marijuana (THC) Screen NEGATIVE 01/17/20 17:06 RPR NONREACTIVE (NONREACTIVE) 01/17/20 17:40 Blood Type O POSITIVE 01/17/20 17:40 Antibody Screen NEGATIVE 01/17/20 17:40 Plan Plan of Treatment: d/c home, f/up with [facility] in 4wks for PP check Time Spent: Less than 30 Minutes
== END 2020-01-19 15:40 | disposition home or self-care (01) | DRG 807 ==
LOC: LC 17:00 → LR 17:25 → 2S 01-18 09:50
PROVIDERS: ADMIT Obstetrics & Gynecology; ATTEND Obstetrics & Gynecology
PROC: 10E0XZZ Delivery of Products of Conception, External Approach (ICD-10-PCS; principal; 2020-01-17)
PROC: 0HQ9XZZ Repair Perineum Skin, External Approach (ICD-10-PCS; 2020-01-17)
PROC: 3E02340 Introduction of Influenza Vaccine into Muscle, Percutaneous Approach (ICD-10-PCS; 2020-01-19)
DX: O70.0 First degree perineal laceration during delivery (principal); Z37.0 Single live birth; Z3A.40 40 weeks gestation of pregnancy; O71.82 Other specified trauma to perineum and vulva; Z23 Encounter for immunization
CPT/HCPCS: 1967; 36415; 80307; 81005; 84112; 85025; 85027; 86592; 86850; 86900; 86901; 90686; J2590; J2795; J3010; J3490